=== PATIENT | female | born 1995 | race Asian ===

== ENCOUNTER 2018-09-15 12:44 | Emergency (ER) | payer BC ==
[~2018-09-15] VITALS: Ht 160 cm; Wt 76.4 kg
[~2018-09-15 12:44] MED LIST: IBUP-1542 PO
[2018-09-15 13:01] VITALS: BP 114/57; PULSE 77; RESP 18; Ht 160 cm; Wt 76.4 kg
[2018-09-15] MEDS ORDERED: IBUP800T48 PO (13:49)
[2018-09-15] MEDS ORDERED: CYCL10TA7 PO (13:49)
--- NOTE | 2018-09-15 13:52 | ERD ---
ER Documentation Chief Complaint Chief Complaint BACK PAIN X 3 WEEKS GETTING WORSE HPI 23-year-old female presents with left-sided lower back pain that began 3 weeks ago. She states is been getting worse. She takes Tylenol occasionally. She has no dysuria hematuria frequency. No bowel bladder incontinence. No saddle anesthesia. Denies any trauma. No fever. No vomiting ROS All systems reviewed and are negative except as per history of present illness. Medications Home Meds Active Scripts Ibuprofen* (Motrin*) 800 Mg Tab, 800 MG PO Q6, #30 TAB Prov:MARY DIAZ PA-C 09/15/18 Cyclobenzaprine Hcl* (Cyclobenzaprine Hcl*) 10 Mg Tablet, 10 MG PO TID, #15 TAB Prov:MARY DIAZ PA-C 09/15/18 Ibuprofen* (Motrin*) 600 Mg Tab, 600 MG PO Q6, #20 TAB Prov:MILTON MATIAS PA-C 11/16/14 Reported Medications [None] No Conflict Check 10/13/12 Allergies Allergies: Coded Allergies: No Known Allergy (Unverified , 11/16/14) PMhx/Soc Medical and Surgical Hx: pt denies Surgical Hx History of Surgery: No Anesthesia Reaction: No Hx Neurological Disorder: Yes (MIGRAINES, NEGATIVE MRI 5-6 YRS) Hx Respiratory Disorders: Yes (ASTHMA SINCE CHILDHOOD ) Hx Cardiac Disorders: No Hx Psychiatric Problems: No Hx Miscellaneous Medical Probl: No Hx Alcohol Use: No Hx Tobacco Use: No Smoking Status: Never smoker FmHx Family History: No diabetes Physical Exam Vitals Vital Signs Date Temp Pulse Resp B/P (MAP) Pulse Ox O2 O2 Flow FiO2 Time Delivery Rate 09/15/18 97.8 77 18 114/57 98 13:01 (76) Physical Exam Const: No acute distress Head: Atraumatic Eyes: Normal Conjunctiva ENT: Normal External Ears, Nose and Mouth. Neck: Full range of motion. No meningismus. Resp: Clear to auscultation bilaterally Cardio: Regular rate and rhythm, no murmurs Abd: Soft, non tender, non distended. Normal bowel sounds Back Exam: Compartments: Soft Motor: Normal flexion and extension of bilateral hip/knee/ankle/foot Sensation: Intact to light touch throughout Bones: No midline TTP Results 24 hrs Laboratory Tests Test 09/15/18 13:45 09/15/18 13:46 POC Beta HCG, Qualitative NEGATIVE Bedside Urine pH (LAB) 5.5 Bedside Urine Protein (LAB) Negative Bedside Urine Glucose (UA) Negative Bedside Urine Ketones (LAB) Negative Bedside Urine Blood Trace-intact Bedside Urine Nitrite (LAB) Negative Bedside Urine Leukocyte Esterase (L Negative Procedures/MDM 23-year-old is here with back pain. The differential diagnosis includes but is not limited to muscle strain, ligament strain, contusion, arthritis, discogenetic disease, non-musculoskeletal, cauda equina syndrome, cord compression, abscess and others. Urine negative. Patient discharged with ibuprofen and Flexeril. Patient counseled regarding my diagnostic impression and care plan. Prior to discharge all questions answered. Pt agrees with treatment plan and understands strict return precautions. Pt is instructed to follow up with primary care provider within 24-48 hours. Precautionary instructions provided including instructions to return to the ER if not improv ing or for any worsening or changing symptoms or concerns. Departure Diagnosis: Primary Impression: Back pain Condition: Stable Patient Instructions: Back Pain (Acute Or Chronic) Additional Instructions: Call your primary care doctor TOMORROW for an appointment during the next 1-2 days.See the doctor sooner or return here if your condition worsens before your appointment time. MARY DIAZ PA-C Sep 15, 2018 13:52
== END 2018-09-15 14:49 | disposition home or self-care (01) ==
LOC: FTE 12:44
DX: M54.5 Low back pain (principal)
CPT/HCPCS: 81003; 81025; Z7502; 99283

== ENCOUNTER 2018-11-17 16:27 | Emergency (ER) | payer BC ==
[~2018-11-17] VITALS: Ht 160 cm; Wt 77.8 kg
[~2018-11-17 16:27] MED LIST changes: +CYCL10TA7 PO; +IBUP800T48 PO
[2018-11-17 16:29] VITALS: BP 118/71; PULSE 57; RESP 16; Ht 160 cm; Wt 77.8 kg
[2018-11-17] MEDS ORDERED: ONDANSETRON (ODT) 4 MG TAB ODT STA (16:58)
--- NOTE | 2018-11-17 17:00 | ERD ---
ER Documentation Chief Complaint Chief Complaint Pt reports HERNANDEZ x 1 day, and blood in urine 1 week HPI This is a 23-year-old female patient who presents emergency room with complaint of headache and hematuria x1 week. + Nausea, + urinary frequency, denies back pain, no flank pain, no pelvic pain. Denies vaginal discharge. Last menstrual period November 05. Patient was seen at [facility] for UTI on November 08 and treated with Keflex. States headache is diffuse, throbbing, no visual deficits, states it feels like a tension headache. No neurological deficits. Patient with clear speech, steady gait at time of evaluation. ROS All systems reviewed and are negative except as per history of present illness. Medications Home Meds Active Scripts Ibuprofen* (Motrin*) 800 Mg Tab, 800 MG PO Q6, #30 TAB Prov:MARY DIAZ PA-C 09/15/18 Cyclobenzaprine Hcl* (Cyclobenzaprine Hcl*) 10 Mg Tablet, 10 MG PO TID, #15 TAB Prov:MARY DIAZ PA-C 09/15/18 Ibuprofen* (Motrin*) 600 Mg Tab, 600 MG PO Q6, #20 TAB Prov:MILTON MATIAS PA-C 11/16/14 Reported Medications [None] No Conflict Check 10/13/12 Allergies Allergies: Coded Allergies: No Known Allergy (Unverified , 11/17/18) PMhx/Soc History of Surgery: No Anesthesia Reaction: No Hx Neurological Disorder: Yes (MIGRAINES, NEGATIVE MRI 5-6 YRS) Hx Respiratory Disorders: Yes (ASTHMA SINCE CHILDHOOD ) Hx Cardiac Disorders: No Hx Psychiatric Problems: No Hx Miscellaneous Medical Probl: No Hx Alcohol Use: No Hx Substance Use: No Hx Tobacco Use: No Smoking Status: Never smoker FmHx Family History: No diabetes, No coronary disease, No other Physical Exam Vitals Vital Signs Date Temp Pulse Resp B/P (MAP) Pulse Ox O2 O2 Flow FiO2 Time Delivery Rate 11/17/18 98.7 57 16 118/71 100 16:29 (87) Physical Exam Const: No acute distress Head: Atraumatic Eyes: Normal Conjunctiva, ,PERRL, EOMI ENT: Normal External Ears, Nose and Mouth. Neck: Full range of motion. No meningismus. No cervical spinal tenderness, no lymphadenopathy Resp: Clear to auscultation bilaterally Cardio: Regular rate and rhythm, no murmurs Abd: Soft, non tender, non distended. Normal bowel sounds Skin: No petechiae or rashes Back: No midline or flank tenderness, no CVT Ext: No cyanosis, or edema Neur: Awake and alert, CN II-XII intact, clear speech, steady gait, no paresthesia, neg Romberg, no ataxia Psych: Normal Mood and Affect Results 24 hrs Laboratory Tests Test 11/17/18 17:10 11/17/18 17:18 Urine Color STRAW Urine Clarity CLEAR Urine pH 7.0 Urine Specific [place] 1.004 Urine Ketones NEGATIVE mg/dL Urine Nitrite NEGATIVE mg/dL Urine Bilirubin NEGATIVE mg/dL Urine Urobilinogen NEGATIVE mg/dL Urine Leukocyte Esterase NEGATIVE Stefano/ul Urine Hemoglobin NEGATIVE mg/dL Urine Glucose NEGATIVE mg/dL Urine Total Protein NEGATIVE mg/dl POC Beta HCG, Qualitative NEGATIVE Current Medications Medications Dose Sig/Larisa Start Time Status Last (Trade) Ordered Route PRN Stop Time Admin Dose Reason Admin Ondansetron 4 mg ONCE STAT 11/17/18 DC 11/17/18 HCl (Zofran ODT 16:58 11/17/18 17:09 Odt) 17:00 Procedures/MDM PROCEDURES/MDM DIAGNOSTIC IMAGING: Not indicated LAB INTERPRETATION: UA: neg preg, neg UTI -Medications: Zofran, declines medicine for pain Patient tolerated medication well with no adverse reactions. Patient reported improvement in nausea. MDM: This is a 23-year-old female patient who presents emergency room with concern that she may have on going an untreated UTI as she states that she has pink- tinged fluid when she wipes after urinating. She recently finished a course of Keflex for UTI. Urinalysis today does not indicate patient currently has cystitis. Patient also has urinary frequency and admits to frequent caffeine use. Patient has been instructed to decrease caffeine which is a bladder irritant, increase hydration, and to follow-up with primary care provider if symptoms continue. Patient also denies of being sexually active or having any unusual vaginal discharge or pelvic pain. Patient states her headache has resolved during ED course, and believes headache is related to stress, today due to fear of possibly having UTI and having to come to the hospital. Other times because she is a senior in college and has difficult relationships with her parents that she lives with. Long discussion had with patient regarding good self-care including exercise, joyful activities, relaxation exercises, increasing hydration, well-balanced diet. Patient was instructed to return to the emergency room if her headaches change, worsen, are accompanied by any paresthesias or vomiting. Patient appreciative of evaluation today, alert and appropriate at time of discharge. DISPOSITION and PLAN: RX: none The patient has been discharge home to follow-up with community physician. Departure Diagnosis: Primary Impression: Headache Headache type: tension-type Headache chronicity pattern: episodic headache Intractability: not intractable Qualified Codes: G44.219 - Episodic tension-type headache, not intractable Additional Impression: Urinary frequency Condition: Stable PATY CHOWDHURY NP Nov 17, 2018 17:00
== END 2018-11-17 18:29 | disposition home or self-care (01) ==
LOC: FTE 16:27
DX: G44.219 Episodic tension-type headache, not intractable (principal); J45.909 Unspecified asthma, uncomplicated; R35.0 Frequency of micturition
CPT/HCPCS: 81003; 81025; 87086; 99283; Z7610